=== PATIENT | male | born 2000 | race Two or more races ===

== ENCOUNTER 2018-11-18 18:23 | Emergency (ER) | payer OTHER ==
[2018-11-18] MEDS ORDERED: LIDOCAINE-EPINEPH-TETRACAINE 3 ML SYRINGE TOP STA (18:54)
--- NOTE | 2018-11-18 19:17 | ED Physician Documentation ---
PD HPI HEAD INJURY - Stated complaint Stated Complaint: L EYE LAC - Chief complaint Chief Complaint: Laceration - History obtained from History obtained from: Patient, Friend - History of Present Illness Mechanism of head injury: Other (elbow to the L eye.) Where head injury occurred: [place] - onset: How many hours ago (1) Pain level max: 2 Pain level now: 0 Location of injury: Left Quality of pain: Dull Associated symptoms: No: LOC, AMS, Amnesia, Nausea / vomiting, Neck pain, Paresthesias, Seizures, Ear drainage, Nasal drainage Symptoms improve with: Rest Symptoms worsen with: Other (nothing.) Contributing factors: No: Anticoagulated - Additional information Additional information: Elbow to the left eye when playing basketball. Sustained a laceration to the upper eyelid and below the eye. Review of Systems Constitutional: denies: Fever Eyes: denies: Decreased vision, Photophobia GI: denies: Vomiting Neurologic: denies: Headache, LOC PD PAST MEDICAL HISTORY - Past Medical History Past Medical History: No - Past Surgical History Past Surgical History: No - Allergies Allergies/Adverse Reactions: Allergies Allergy/AdvReac Type Severity Reaction Status Date / Time No Known Drug Allergies Allergy Verified 11/18/18 18:31 - Living Situation Living Situation: reports: With family Living Arrangement: reports: At home - Social History Does the pt drink ETOH?: No Does the pt have substance abuse?: No - Family History Family history: reports: Non contributory PD ED PE NORMAL - Vitals Vital signs reviewed: Yes - General General: Alert and oriented X 3, No acute distress - HEENT HEENT: PERRL, Moist mucous membranes, Other (Left upper eyelid has a 2 cm linear abrasion. Does not go through the eyelid. There is also a 0.5 cm superficial laceration below the eye. Not bleeding. No hyphema. Normal vision. Normal pupil. No extraocular no orbital tenderness. No facial bone tenderness. Extraocular movements intact) - Neck Neck: Supple, no meningeal sign, No bony TTP - Derm Derm: Warm and dry - Neuro Neuro: Alert and oriented X 3, wool hat hydraulicker 2-12 intact, No motor deficit, No sensory deficit, Normal speech Eye Opening: Spontaneous Motor: Obeys Commands Verbal: Oriented GCS Score: 15 Results - Vitals Vitals: Vital Signs - 24 hr 11/18/18 11/18/18 18:26 19:41 Temperature 36.6 C 37.1 C Heart Rate 94 70 Respiratory 14 16 Rate Blood Pressure 129/52 L 129/41 L O2 Saturation 99 100 Oxygen O2 Source Room air Procedures - Laceration (location) Left upper eyelid Length in cm: 2 Wound type: Linear Neurovascular status: Sensory intact, Motor intact, Vascular intact Anesthesia: LET Wound Preparation: Irrigated copiously NS Skin layer closure: Dermabond Other: Patient tolerated well, No complications, Neurovascular intact, Tetanus UTD Complexity: Simple PD MEDICAL DECISION MAKING - ED course Complexity details: considered differential, d/w patient ED course: Larger laceration repaired with Dermabond. The lower laceration does not require any repair. Warnings of infection and instructions on wound care given at bedside. Also counseled on how to minimize scarring. No evidence of facial bone fracture. Will hold images at this time. No evidence of intracranial hemorrhage or skull fracture that require intervention. Head injury instructions given at bedside. Patient counseled regarding signs and symptoms for which I believe and urgent re-evaluation would be necessary. Patient with good understanding of and agreement to plan and is comfortable going home at this time This document was made in part using voice recognition software. While efforts are made to proofread this document, sound alike and grammatical errors may occur. Departure - Departure Disposition: 01 Home, Self Care Clinical Impression: Eyelid laceration, left Qualifiers: Encounter type: initial encounter Qualified Code(s): S01.112A - Laceration without foreign body of left eyelid and periocular area, initial encounter Condition: Good Health Concerns: facial laceration Plan of Treatment: dermabond Care Goals: repair laceration Assessment: improved Instructions: ED Laceration Facial Skin Glue Follow-Up: your,doctor as needed [Other] Comments: Follow-up with your doctor as needed for further care. The glue will dissolve on its own in a few days. Keep the wound clean. Do not apply any ointment as this may dissolve the glue. Return if you worsen. Return especially for any redness, swelling or drainage from the wound. Discharge Date/Time: 11/18/18 19:43
[2018-11-18 19:55] VITALS: BP 129/41
== END 2018-11-18 19:43 | disposition home or self-care (01) ==
LOC: ED 18:23
DX: S01.112A Laceration without foreign body of left eyelid and periocular area, initial encounter (principal); W50.0XXA Accidental hit or strike by another person, initial encounter; Y93.67 Activity, basketball; Y92.830 Public park as the place of occurrence of the external cause
CPT/HCPCS: 12011; 99282; 99283

== ENCOUNTER 2021-04-11 12:26 | Emergency (ER) | payer OTHER ==
[2021-04-11 12:38] VITALS: BP 137/60
--- NOTE | 2021-04-11 12:50 | ED Physician Documentation ---
History of Present Illness - Stated complaint Stated Complaint: MALE - Chief complaint Chief Complaint: General - History obtained from History obtained from: Patient - Additonal information Additional information: Had a "1 night stand" unprotected sex about a week ago and is concerned for STDs. He was not exposed anything that he knows of and has no symptoms. Review of Systems Constitutional: denies: Fever, Chills Throat: denies: Sore throat : denies: Dysuria, Frequency, Hesitancy, Unable to Void, Incontinent, Hematuria, Discharge PD PAST MEDICAL HISTORY - Past Medical History Past Medical History: No Cardiovascular: None Respiratory: None Neuro: None Endocrine/Autoimmune: None GI: None : None HEENT: None Psych: None Musculoskeletal: None Derm: None - Past Surgical History Past Surgical History: No - Present Medications Home Medications: Ambulatory Orders Medication Instructions Recorded Confirmed No Known Home Medications 04/11/21 04/11/21 - Allergies Allergies/Adverse Reactions: Allergies Allergy/AdvReac Type Severity Reaction Status Date / Time No Known Drug Allergies Allergy Verified 04/11/21 12:34 - Social History Does the pt smoke?: No Smoking Status: Never smoker Does the pt drink ETOH?: Yes Does the pt have substance abuse?: No - Immunizations Immunizations are current?: Yes PD ED PE NORMAL - Vitals Vital signs reviewed: Yes - General General: Alert and oriented X 3, No acute distress - Abdomen Abdomen: Soft, Non tender - Neuro Neuro: Alert and oriented X 3, Normal speech Results - Vitals Vitals: Vital Signs - 24 hr 04/11/21 12:35 Temperature 37 C Heart Rate 66 Respiratory 16 Rate Blood Pressure 137/60 H O2 Saturation 99 Oxygen O2 Source Room air PD MEDICAL DECISION MAKING - ED course ED course: We discussed potential presumptive treatments but given the lack of known exposure and symptoms he prefers to wait for results as opposed to getting prophylactic antibiotics. Departure - Departure Disposition: 01 Home, Self Care Clinical Impression: Concern about STD in male without diagnosis Condition: Good Record reviewed to determine appropriate education?: Yes Instructions: Condom Instruct Put On, STD Comments: We are testing for gonorrhea and chlamydia, and will call if positive. [place].
[2021-04-11 21:31] LABS: CHLAMYDIA TRACHOMATIS DNA NEGATIVE (NEGATIVE); NEISSERIA GONORRHOEAE DNA NEGATIVE (NEGATIVE)
== END 2021-04-11 13:09 | disposition home or self-care (01) ==
LOC: ED 12:26
DX: Z11.3 Encounter for screening for infections with a predominantly sexual mode of transmission (principal)
CPT/HCPCS: 87491; 87591; 87661; 99281; 99283